=== PATIENT | male | born 2000 | race Caucasian/White ===

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

== ENCOUNTER 2022-03-21 23:22 | Emergency (ER) | payer OTHER ==
[~2022-03-21] VITALS: Ht 167.6 cm; Wt 56.8 kg
[~2022-03-21 23:22] MED LIST changes: -PRED-572 PO
[2022-03-22] MEDS ORDERED: IBUPROFEN 600 MG TABLET PO ONE (02:15)
[2022-03-22] MEDS ORDERED: CEPHALEXIN MONOHYDRATE 500 MG CAPSULE PO ONE (02:15)
[2022-03-22] MEDS ORDERED: CEPH-558 PO (02:22)
[2022-03-22] MEDS ORDERED: IBUP-2070 PO (02:22)
[2022-03-22 02:29] VITALS: BP 125/70
== END 2022-03-22 02:30 | disposition home or self-care (01) ==
LOC: EMS 23:25
DX: S09.93XA Unspecified injury of face, initial encounter (principal); W26.9XXA Contact with unspecified sharp object(s), initial encounter; Y93.89 Activity, other specified; Y92.89 Other specified places as the place of occurrence of the external cause; Y99.8 Other external cause status
CPT/HCPCS: 99283